=== PATIENT | male | born 1955 | race Caucasian/White ===

== ENCOUNTER 2018-04-14 17:59 | Emergency (ER) | payer MEDICAID ==
[~2018-04-14] VITALS: Ht 170.2 cm; Wt 103.0 kg
[~2018-04-14 17:59] MED LIST: COLC1TAB7 PO; DILA2TAB2 PO; INDO50 PO; LISI-366 PO; LORTA5 PO; PROM25SU8 PO; PROM25TA5 PO; ULTR50TA PO
[2018-04-14 18:14] VITALS: BP 139/76; PULSE 94; RESP 18; TEMP 98.9; O2SAT 95
[2018-04-14] MEDS ORDERED: AMLO10TA2 PO (18:24)
[2018-04-14] MEDS ORDERED: METF-382 PO (18:24)
[2018-04-14] MEDS ORDERED: PROT40TA PO (18:24)
[2018-04-14] MEDS ORDERED: LIDOCAINE HCL 1% 20 ML VIAL INFIL ONE (18:30)
[2018-04-14] MEDS ORDERED: CEPHALEXIN MONOHYDRATE 500 MG CAP PO ONE (18:30)
[2018-04-14] MEDS ORDERED: CEPH-460 PO (18:33)
--- NOTE | 2018-04-14 18:34 | PD ---
HPI Chief Complaint: Skin Problem Time Seen by Provider: 18:28 Travel History International Travel<30 days: No Contact w/Intl Traveler<30days: No Traveled to known affect area: No History of Present Illness HPI 62-year-old male complains of left index finger pain. He has a history of diabetes. The pain has been present for couple days. Today he accidentally knocked it against a solid object causing severe pain. No fever. Onset gradual. Pain is worse with palpation. Constant throbbing pain reported. 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) Other Surgery: Yes ( TUMOR REMOVED LEFT SHOULDER) Social History Alcohol Use: No Tobacco Use: No Substance Use: Yes (MARIJUANA ) Allergies-Medications (Allergen,Severity, Reaction): Coded Allergies: No Known Allergies (Unverified Adverse Reaction, Unknown, 04/14/18) Reported Meds & Prescriptions Reported Meds & Active Scripts Active Keflex (Cephalexin) 500 Mg Cap 500 Mg PO Q8H 10 Days Reported Protonix (Pantoprazole Sodium) 40 Mg Tab 40 Mg PO DAILY Amlodipine (Amlodipine Besylate) 10 Mg Tab 10 Mg PO DAILY Metformin ER (Metformin HCl) 1,000 Mg Martinez 1,500 Mg PO DAILY With evening meal Review of Systems General / Constitutional: No: Fever Eyes: No: Diploplia HENT: No: Headaches Cardiovascular: No: Chest Pain or Discomfort Physical Exam Narrative GENERAL: 62-year-old male pleasant well-nourished well-developed Vital Signs Date Time Temp Pulse Resp B/P (MAP) Pulse Ox O2 Delivery O2 Flow Rate FiO2 04/14/18 18:14 98.9 94 18 139/76 (97) 95 SKIN: Warm and dry. HEAD: Normocephalic. EYES: No scleral icterus. No injection or drainage. NECK: Supple, trachea midline. No JVD or lymphadenopathy. CARDIOVASCULAR: Regular rate and rhythm without murmurs, gallops, or rubs. RESPIRATORY: Breath sounds equal bilaterally. No accessory muscle use. GASTROINTESTINAL: Abdomen soft, non-tender, nondistended. MUSCULOSKELETAL: No cyanosis, or edema. The left index finger demonstrates a paronychia along the radial margin. No evidence of flexor tenosynovitis. BACK: Nontender without obvious deformity. No CVA tenderness. Data Data Last Documented VS Vital Signs Date Time Temp Pulse Resp B/P (MAP) Pulse Ox O2 Delivery O2 Flow Rate FiO2 04/14/18 18:14 98.9 94 18 139/76 (97) 95 Orders Orders Lidocaine 1% Inj (Xylocaine 1% Inj) (04/14/18 18:30) Cephalexin (Keflex) (04/14/18 18:30) MDM Medical Decision Making Medical Screen Exam Complete: Yes Emergency Medical Condition: Yes Medical Record Reviewed: Yes Differential Diagnosis Cellulitis, paronychia, herpetic Narrative Course Wound lanced moderate purulent discharge. Keflex prescription given diabetes history. Return precautions discussed. Procedures Procedure Narrative After the risks and benefits were discussed the following procedure was performed: INCISION AND DRAINAGE OF ABSCESS: The area was prepped and was sterilely draped. A subcutaneous wheal of 1 % Xylocaine with a total number 5 mL was used to anesthetize the area. The area was properly anesthetized. A number 11 scalpel was used to make a 0.5 -cm incision across the area of the abscess. Cultures were obtained. The abscess was drained an irrigated with normal saline. Quarter inch iodoform packing was placed in the wound. Sterile dressing applied. Patient advised to have packing removed in two days. Diagnosis Primary Impression: Paronychia of finger of left hand Referrals: Primary Care Physician call for appointment Med/Other Pt SpecificInfo: Prescription(s) given Scripts Cephalexin (Keflex) 500 Mg Cap 500 MG PO Q8H for Infection for 10 Days, #30 CAP 0 Refills Prov: Jame Aguilar MD 04/14/18 Disposition: 01 DISCHARGE HOME Condition: Stable Jame Aguilar MD April 14, 2018 18:34
== END 2018-04-14 19:09 | disposition home or self-care (01) ==
LOC: PHEFT 17:59
DX: L03.012 Cellulitis of left finger (principal); E11.9 Type 2 diabetes mellitus without complications; I10 Essential (primary) hypertension; M10.9 Gout, unspecified
CPT/HCPCS: 10060

== ENCOUNTER 2018-05-04 17:50 | Emergency (ER) | payer MEDICAID ==
[~2018-05-04] VITALS: Ht 170.2 cm; Wt 106.5 kg
[~2018-05-04 17:50] MED LIST changes: +AMLO10TA2 PO; +CEPH-460 PO; -COLC1TAB7 PO; -DILA2TAB2 PO; -INDO50 PO; -LISI-366 PO; -LORTA5 PO; +METF-382 PO; -PROM25SU8 PO; -PROM25TA5 PO; +PROT40TA PO; -ULTR50TA PO
[2018-05-04 18:14] VITALS: BP 134/64; PULSE 62; RESP 16; TEMP 98.3; O2SAT 95
--- NOTE | 2018-05-04 18:44 | PD ---
HPI Chief Complaint: Injury Time Seen by Provider: 18:27 Travel History International Travel<30 days: No Contact w/Intl Traveler<30days: No Traveled to known affect area: No History of Present Illness HPI 62yo M with neuropathy here with c/o left knee pain and bilateral ankle pain today. Said sometimes he doesnt feel his feet because of the bad neuropathy and he thinks he twisted his right ankle first and then his left ankle and knee. Said he didnt fall and held onto something but is in a lot of pain with any movement. Denies any new numbness. Denies any fever, IVDA, weakness, chest pain, sob, n/v, abdominal pain. Pt said he has really bad neuropathy and gabapentin and lyrica does not work and he is looking into going to pain management or acupuncture when he goes back to [place]. PFSH Past Medical History Hx Anticoagulant Therapy: Yes (asa 81mg) Arthritis: Yes (GOUT) Cardiovascular Problems: Yes (htn on meds) High Cholesterol: Yes Diabetes: Yes (type 2) Diminished Hearing: No Gout: Yes Hypertension: Yes Past Surgical History Thoracic Surgery: Yes (left shoulder tumor removed) Other Surgery: Yes ( TUMOR REMOVED LEFT SHOULDER) Social History Alcohol Use: No Tobacco Use: No Substance Use: Yes (MARIJUANA ) Allergies-Medications (Allergen,Severity, Reaction): Coded Allergies: No Known Allergies (Unverified Adverse Reaction, Unknown, 05/04/18) Reported Meds & Prescriptions Reported Meds & Active Scripts Active Reported Fish Oil + D3 (Fish Oil-Cholecalciferol) 1,200-1,000 Mg-Unit Cap 1 Cap PO BID Lipitor (Atorvastatin Calcium) 10 Mg Tab 10 Mg PO DAILY Aspirin Low Dose (Aspirin) 81 Mg Chew 81 Mg CHEW DAILY Protonix (Pantoprazole Sodium) 40 Mg Tab 40 Mg PO DAILY Amlodipine (Amlodipine Besylate) 10 Mg Tab 10 Mg PO DAILY Metformin ER (Metformin HCl) 1,000 Mg Martinez 1,500 Mg PO DAILY With evening meal Review of Systems Except as stated in HPI: all other systems reviewed are Neg Physical Exam Narrative GENERAL: 62yo M not in distress. SKIN: Focused skin assessment warm/dry. HEAD: Atraumatic. Normocephalic. EYES: Pupils equal and round. No scleral icterus. No injection or drainage. ENT: No nasal bleeding or discharge. Mucous membranes pink and moist. NECK: Trachea midline. No JVD. CARDIOVASCULAR: Regular rate and rhythm. No murmur appreciated. RESPIRATORY: No accessory muscle use. Clear to auscultation. Breath sounds equal bilaterally. GASTROINTESTINAL: Abdomen soft, non-tender, nondistended. MUSCULOSKELETAL: LLE: Left knee showed no swelling, erythema. +TTP lateral aspect. Pain with full flexion and extension and feels best with slight flexion. Left ankle: +TTP lateral malleolus. DP 2+. Sensation intact except for old numbness in foot. RLE: +TTP medial malleolus. DP 2+. NEUROLOGICAL: Awake and alert. No obvious cranial nerve deficits. Motor grossly within normal limits. Normal speech. PSYCHIATRIC: Appropriate mood and affect; insight and judgment normal. Data Data Last Documented VS Vital Signs Date Time Temp Pulse Resp B/P (MAP) Pulse Ox O2 Delivery O2 Flow Rate FiO2 05/04/18 18:14 98.3 62 16 134/64 (87) 95 Orders Orders Knee, Ltd (1 Or 2vws) (05/04/18 ) Ankle, Limited (Ap&Lat) (05/04/18 ) Ankle, Limited (Ap&Lat) (05/04/18 ) Diazepam (Valium) (05/04/18 18:45) Acetamin-Hydrocod 325-5 Mg ([place] 5-325 (05/04/18 18:45) MDM Medical Decision Making Medical Screen Exam Complete: Yes Emergency Medical Condition: Yes Differential Diagnosis Ankle sprain vs. ligamentous injury vs. meniscus injury vs. musculoskeletal pain Narrative Course 62yo M with bilateral ankle and left knee pain after he twisted it today. Did not fall or hit the ground. No head trauma. Xray bilateral ankles and left knee negative. Pt given valium and lortab with some improvement. Return precautions given. Diagnosis Primary Impression: Ankle sprain Qualified Codes: S93.409A - Sprain of unspecified ligament of unspecified ankle, initial encounter Additional Impression: Knee pain, acute Qualified Codes: M25.562 - Pain in left knee Patient Instructions: General Instructions Departure Forms: Tests/Procedures Additional Instructions: Please follow up with your primary care physician for possible orthopedic referral. Return to the ED if symptoms worsen. Med/Other Pt SpecificInfo: Prescription(s) given Scripts Acetaminophen (Tylenol) 325 Mg Tab 650 MG PO Q6H Y for PAIN SCALE 1 TO 4, #20 TAB 0 Refills Prov: Barbie Warren DO 05/04/18 Disposition: 01 DISCHARGE HOME Condition: Stable Barbie Warren DO May 04, 2018 18:44
[2018-05-04] MEDS ORDERED: ACETAMINOPHEN/HYDROcodone 325 MG/5 MG TAB PO ONE (18:45)
[2018-05-04] MEDS ORDERED: DIAZEPAM 5 MG TAB PO ONE (18:45)
[2018-05-04] MEDS ORDERED: LIPI10TA PO (18:46)
[2018-05-04] MEDS ORDERED: ASPI81CH6 CHEW (18:46)
[2018-05-04] MEDS ORDERED: FISHCAP4 PO (18:46)
--- NOTE | 2018-05-04 19:10 | RADRPT ---
EXAM DATE: 05/04/2018 7:00 PM EDT AGE/SEX: 62 years / Male INDICATIONS: Left ankle pain post fall today CLINICAL DATA: This is the patient's initial encounter. Patient reports that signs and symptoms have been present for 1 day and indicates a pain score of 5/10. MEDICAL/SURGICAL HISTORY: None. None. COMPARISON: [facility], ANKLE LEFT LIMITED (AP&LAT), 10/31/2011. . FINDINGS: There is mild arthritic change in the ankle and slight ossific spurring of the medial and lateral mal leolar line consistent with old ligamentous injuries. There is no evidence of fracture or dislocation . A tiny plantar heel spur is present. The hindfoot is intact. CONCLUSION: No acute bony injury Electronically signed by: Loi Garnica MD 05/04/2018 7:08 PM EDT
--- NOTE | 2018-05-04 19:10 | RADRPT ---
EXAM DATE: 05/04/2018 7:01 PM EDT AGE/SEX: 62 years / Male INDICATIONS: Right ankle pain post fall today CLINICAL DATA: This is the patient's initial encounter. Patient reports that signs and symptoms have been present for 1 day and indicates a pain score of 5/10. MEDICAL/SURGICAL HISTORY: None. None. COMPARISON: No prior exams available for comparison. FINDINGS: There are mild arthritic changes in the ankle. No evidence of acute injury. Tiny plantar heel spur. V isualized hindfoot is intact. CONCLUSION: Acute bony injury Electronically signed by: Loi Garnica MD 05/04/2018 7:09 PM EDT
--- NOTE | 2018-05-04 19:13 | RADRPT ---
EXAM DATE: 05/04/2018 7:02 PM EDT AGE/SEX: 62 years / Male INDICATIONS: Left knee pain post fall, twisting injury today CLINICAL DATA: This is the patient's initial encounter. Patient reports that signs and symptoms have been present for 1 day and indicates a pain score of 10/10. MEDICAL/SURGICAL HISTORY: None. None. COMPARISON: No prior exams available for comparison. FINDINGS: Bony structures are intact and in normal alignment. Joints are intact without dislocation or signifi cant arthropathy. Osseous density is normal. Soft tissues are unremarkable. No radiopaque foreign bodies seen. CONCLUSION: No evidence of recent bony injury. Electronically signed by: Loi Garnica MD 05/04/2018 7:11 PM EDT
[2018-05-04] MEDS ORDERED: TYLE325T PO (19:34)
== END 2018-05-04 19:48 | disposition home or self-care (01) ==
LOC: PHEFT 17:50
DX: S93.402A Sprain of unspecified ligament of left ankle, initial encounter (principal); S93.401A Sprain of unspecified ligament of right ankle, initial encounter; M25.562 Pain in left knee; M10.9 Gout, unspecified; I10 Essential (primary) hypertension; E78.00 Pure hypercholesterolemia, unspecified; E11.40 Type 2 diabetes mellitus with diabetic neuropathy, unspecified; F12.90 Cannabis use, unspecified, uncomplicated; X50.1XXA Overexertion from prolonged static or awkward postures, initial encounter; Z79.82 Long term (current) use of aspirin; Z79.899 Other long term (current) drug therapy
CPT/HCPCS: 73560; 73600; 99283